=== PATIENT | male | born 1980 | race Caucasian/White ===

== ENCOUNTER 2023-04-03 10:57 | Outpatient (CLI) | payer OTHER, SELFPAY ==
--- NOTE | ~2023-04-03 | MR_ITS ---
MRI of the lumbar spine Clinical History: Degenerative disc disease Technique: Axial T2-weighted images, and sagittal T1-weighted, T2-weighted, and T2 fat-sat images wer e acquired. Findings: There is no fracture or subluxation of the lumbar spine. Vertebral bodies maintain normal h eight and alignment. No suspicious bone marrow signal abnormality seen. At L1-L2, there is no significant disc bulge or herniation. There is mild to moderate facet arthropat hy. No central canal stenosis or neural foraminal narrowing. At L2-L3, there is minimal disc bulge and mild to moderate facet arthropathy. No central canal stenos is or neural foraminal narrowing. At L3-L4, there is mild disc bulge and moderate facet arthropathy. No justin central canal stenosis. T here is mild bilateral neural foraminal narrowing, left worse than right. At L4-L5, there is diffuse disc bulge with advanced facet arthropathy, resulting in moderate central canal stenosis/thecal sac compression. There is mild bilateral neural foraminal narrowing. At L5-S1, there is left paracentral disc protrusion superimposed upon mild disc bulge. There is moder ate facet arthropathy. There is moderate to severe bilateral neural foraminal narrowing, left worse t [place] right. Paravertebral soft tissues are unremarkable. Impression: Moderate degenerative spondylosis at L4-L5 and L5-S1, as detailed above. Mild degenerative change otherwise, as detailed above. Reviewed, dictated and finalized at [facility]. L ROASTER Impression: Moderate degenerative spondylosis at L4-L5 and L5-S1, as detailed above. Mild degenerative change otherwise, as detailed above.
== END 2023-04-03 10:58 | disposition home or self-care (01) ==
PROVIDERS: PCP Family Medicine; Visit Provider Family Medicine
DX: M51.36 Other intervertebral disc degeneration, lumbar region (principal); M43.06 Spondylolysis, lumbar region; M47.817 Spondylosis without myelopathy or radiculopathy, lumbosacral region
CPT/HCPCS: 72148